=== PATIENT | male | born 1955 | race Caucasian/White ===

== ENCOUNTER 2017-10-08 19:32 | Emergency (ER) | payer OTHER ==
[~2017-10-08] VITALS: Ht 182.9 cm; Wt 115.0 kg
[2017-10-08 19:52] VITALS: BP 166/84; PULSE 70; RESP 16; TEMP 98.1; O2SAT 97
[2017-10-08] MEDS ORDERED: SODIUM CHLOR 0.9% 1000 ML INJ 1,000 ML IV SCH (22:58)
[2017-10-08] MEDS ORDERED: SODIUM CHLORIDE 0.9% FLUSH 10 ML FLUSH IVF PRN (23:00)
[2017-10-08 23:41] LABS: AUTOMATED NEUTROPHIL # 4.3 TH/MM3 (1.8-7.7); BASOPHIL # 0.1 TH/MM3 (0-0.2); BASOPHIL % 0.8 % (0.0-2.0); EOSINOPHIL # 0.2 TH/MM3 (0-0.4); EOSINOPHIL % 3.2 % (0.0-4.0); HEMATOCRIT 46.7 % (39.0-51.0); HEMO FLAGS DIFF FINAL; LYMPH % 31.5 % (9.0-44.0); LYMPHOCYTE # 2.3 TH/MM3 (1.0-4.8); MEAN CELL VOLUME 91.5 FL (80.0-100.0); MEAN CORPUSCULAR HEMOGLOBIN 29.9 PG (27.0-34.0); MEAN CORPUSCULAR HGB CONC 32.7 % (32.0-36.0); MONO % 6.8 % (0.0-8.0); NEUT % 57.7 % (16.0-70.0); PLATELET COUNT 276 TH/MM3 (150-450); WHITE BLOOD COUNT 7.4 TH/MM3 (4.0-11.0)
[2017-10-08 23:49] LABS: CHLORIDE 104 MEQ/L (98-107); POTASSIUM 3.9 MEQ/L (3.5-5.1); SODIUM (NA) 139 MEQ/L (136-145)
[2017-10-08 23:52] LABS: ANION GAP 6 MEQ/L (5-15); BICARBONATE 28.9 MEQ/L (21.0-32.0)
[2017-10-08 23:53] LABS: BLOOD UREA NITROGEN 13 MG/DL (7-18)
[2017-10-08 23:55] LABS: ALT (GPT) 62 U/L (12-78); AST (GOT) 21 U/L (15-37); GLOMERULAR FILTRATION RATE 75 ML/MIN (>89)
[2017-10-08 23:57] LABS: TOTAL BILIRUBIN ADULT 0.4 MG/DL (0.2-1.0)
[2017-10-08 23:58] LABS: ALKALINE PHOSPHATASE 80 U/L (45-117)
[2017-10-09] VITALS (8 sets, daily range): BP systolic 152–183; BP diastolic 86–112; PULSE 63–67; RESP 18–20; TEMP 97.8; O2SAT 98–99
[2017-10-09] MEDS ORDERED: IOHEXOL 350 MG/ML 10 ML VIAL (for RAD DIAG) IVCONTRAST ONE (00:18)
--- NOTE | 2017-10-09 00:32 | RADRPT ---
EXAM DATE/TIME: 10/09/2017 00:07 [place] COMPARISON: No previous studies available for comparison. INDICATIONS : Blood in stool. IV CONTRAST: 85 cc Omnipaque 350 (iohexol) IV ORAL CONTRAST: No oral contrast ingested. RADIATION DOSE: 22.30 CTDIvol (mGy) MEDICAL HISTORY : Gastroesophageal reflux disease. SURGICAL HISTORY : None. ENCOUNTER: Initial ACUITY: 1 day PAIN SCALE: 0/10 LOCATION: Abdomen. TECHNIQUE: Volumetric scanning of the abdomen and pelvis was performed. Using automated exposure control and ad justment of the mA and/or kV according to patient size, radiation dose was kept as low as reasonably achievable to obtain optimal diagnostic quality images. DICOM format image data is available electro nically for review and comparison. FINDINGS: There is a 4 mm nodule in the lingula. Followup CT scan in 6 months is recommended. No pleural effus ions are identified. There multiple enhancing lesions in the right lobe of liver likely reflecting he mangiomas the largest measuring 2 cm. MRI is recommended for further evaluation if clinically indicat ed. The spleen is normal in size and free of focal defects. The gallbladder and pancreas are unremark able. No intrahepatic or extrahepatic ductal dilatation is seen. The adrenal glands and kidneys appea r normal bilaterally. No hydronephrosis or mass lesions are identified. Examination of the pelvis demonstrates no evidence of free fluid or pelvic mass. No abnormally enlarg ed inguinal or retroperitoneal lymph nodes are present. The bladder is unremarkable. There is diverti culosis without evidence of diverticulitis. CONCLUSION: 1. No evidence of acute abdominal or pelvic process. No masses are identified. 2. Diverticulosis without evidence of diverticulitis. 3. 4 mm nodule left lung base. Followup CT scan in 6 months is recommended. Cain Ferrari MD on October 09, 2017 at 0:24 Board Certified Radiologist. This report was verified electronically.
[2017-10-09 00:52] LABS: BLOOD, URINE TRACE (NEG); GLUCOSE,URINE NEG (NEG); KETONE, URINE NEG (NEG); NITRITE,URINE NEG (NEG); PH, URINE 5.5 (5.0-8.5)
[2017-10-09 00:58] LABS: URINE COLOR YELLOW (YELLW/STRAW)
[2017-10-09 00:59] LABS: COMMENT (UR) CULT NOT INDICATED; COMMENT2 (UR) MUCOUS PRESENT; CULTURE IF INDICATED CULT NOT INDICATED; RBC, URINE 0-3 /hpf (0-3); SQUAMOUS EPITHELIAL CELL URINE 0-5 /hpf (0-5); WBC, URINE 0-2 /hpf (0-5)
--- NOTE | 2017-10-09 02:24 | PD ---
HPI Chief Complaint: GI Complaint Time Seen by Provider: 22:58 Travel History International Travel<30 days: No Contact w/Intl Traveler<30days: No Traveled to known affect area: No History of Present Illness HPI 62-year-old male presents to the emergency department for complaint of blood on tissue paper intermittently since noon. Patient states ongoing symptoms at 7 PM so follow decided to come to the emergency room for evaluation. The dizziness no lightheadedness no near syncope no syncope no sweats no shortness of breath no abdominal pain has noted some rectal discomfort. Patient denies any straining on bowel movements. No prior history of hemorrhoids. Patient has no known history of rectal bleeding colitis or diverticulitis. Patient denies any fever or chills. Patient to go to urgent care and was told to come to the emergency room for evaluation although he was not examined for any type of rectal bleeding at the clinic. [facility] Past Medical History Narrative Medical GERD; immunizations current; occasional alcohol use: Nursing notes reviewed Diminished Hearing: No GERD: Yes Immunizations Current: Yes Tetanus Vaccination: Unknown Influenza Vaccination: No Social History Alcohol Use: Yes (RARELY) Tobacco Use: No Substance Use: No Allergies-Medications (Allergen,Severity, Reaction): Coded Allergies: No Known Allergies (Unverified , 10/08/17) Reported Meds & Prescriptions Reported Meds & Active Scripts Active Clonidine (Clonidine HCl) 0.1 Mg Tab 0.1 Mg PO Q12HR PRN Analpram-Hc Rectal (Hydrocortisone-Pramoxine Rectal) 2.5-1% Lotn 1 Applic RECTAL Q6HR PRN Review of Systems Except as stated in HPI: all other systems reviewed are Neg Physical Exam Narrative GENERAL: Well-developed well-nourished male in acute distress no respiratory distress SKIN: Warm and dry. HEAD: Normocephalic. EYES: No scleral icterus. No injection or drainage. NECK: Supple, trachea midline. No JVD or lymphadenopathy. CARDIOVASCULAR: Regular rate and rhythm without murmurs, gallops, or rubs. RESPIRATORY: Breath sounds equal bilaterally. No accessory muscle use. GASTROINTESTINAL: Abdomen soft, non-tender, nondistended. Rectal exam: External exam positive hemorrhoid at the anal verge with small thrombus noted and this is gently removed with some active oozing of blood noted normal sphincter tone no palpable mass brown stool. MUSCULOSKELETAL: No cyanosis, or edema. BACK: Nontender without obvious deformity. No CVA tenderness. Data Data Last Documented VS Vital Signs Date Time Temp Pulse Resp B/P (MAP) Pulse Ox O2 Delivery O2 Flow Rate FiO2 10/09/17 03:46 63 18 169/98 (121) 99 Room Air 10/08/17 19:52 98.1 Orders Orders Complete Blood Count With Diff (10/08/17 22:58) Comprehensive Metabolic Panel (10/08/17 22:58) Lipase (10/08/17 22:58) Prothrombin Time / Inr (Pt) (10/08/17 22:58) Act Partial Throm Time (Ptt) (10/08/17 22:58) Urinalysis - C+S If Indicated (10/08/17 22:58) Type And Screen (10/08/17 22:58) Ecg Monitoring (10/08/17 22:58) Iv Access Insert/Monitor (10/08/17 22:58) Oximetry (10/08/17 22:58) Sodium Chlor 0.9% 1000 Ml Inj (Ns 1000 M (10/08/17 22:58) Sodium Chloride 0.9% Flush (Ns Flush) (10/08/17 23:00) Ct Abd/Pel W Iv Contrast(Rout) (10/09/17 ) Iohexol 350 Inj (Omnipaque 350 Inj) (10/09/17 00:18) Orthostatic Vital Signs (10/09/17 00:53) Ed Discharge Order (10/09/17 00:53) Clonidine (Catapres) (10/09/17 02:30) Labs Laboratory Tests Test 10/08/17 23:25 10/09/17 00:34 White Blood Count 7.4 TH/MM3 Red Blood Count 5.10 MIL/MM3 Hemoglobin 15.3 GM/DL Hematocrit 46.7 % Mean Corpuscular Volume 91.5 FL Mean Corpuscular Hemoglobin 29.9 PG Mean Corpuscular Hemoglobin Concent 32.7 % Red Cell Distribution Width 13.0 % Platelet Count 276 TH/MM3 Mean Platelet Volume 7.8 FL Neutrophils (%) (Auto) 57.7 % Lymphocytes (%) (Auto) 31.5 % Monocytes (%) (Auto) 6.8 % Eosinophils (%) (Auto) 3.2 % Basophils (%) (Auto) 0.8 % Neutrophils # (Auto) 4.3 TH/MM3 Lymphocytes # (Auto) 2.3 TH/MM3 Monocytes # (Auto) 0.5 TH/MM3 Eosinophils # (Auto) 0.2 TH/MM3 Basophils # (Auto) 0.1 TH/MM3 CBC Comment DIFF FINAL Differential Comment Prothrombin Time 11.0 SEC Prothromb Time International Ratio 1.0 RATIO Activated Partial Thromboplast Time 27.0 SEC Blood Urea Nitrogen 13 MG/DL Creatinine 1.00 MG/DL Random Glucose 93 MG/DL Total Protein 7.6 GM/DL Albumin 3.8 GM/DL Calcium Level 8.5 MG/DL Alkaline Phosphatase 80 U/L Aspartate Amino Transf (AST/SGOT) 21 U/L Alanine Aminotransferase (ALT/SGPT) 62 U/L Total Bilirubin 0.4 MG/DL Sodium Level 139 MEQ/L Potassium Level 3.9 MEQ/L Chloride Level 104 MEQ/L Carbon Dioxide Level 28.9 MEQ/L Anion Gap 6 MEQ/L Estimat Glomerular Filtration Rate 75 ML/MIN Lipase 172 U/L Urine Color YELLOW Urine Turbidity CLEAR Urine pH 5.5 Urine Specific [place] GREATER THAN 1.035 Urine Protein NEG mg/dL Urine Glucose (UA) NEG mg/dL Urine Ketones NEG mg/dL Urine Occult Blood TRACE Urine Nitrite NEG Urine Bilirubin NEG Urine Leukocyte Esterase NEG Urine RBC 0-3 /hpf Urine WBC 0-2 /hpf Urine Squamous Epithelial Cells 0-5 /hpf Urine Bacteria NONE /hpf Microscopic Urinalysis Comment CULT NOT INDICATED MDM Medical Decision Making Medical Screen Exam Complete: Yes Emergency Medical Condition: Yes Medical Record Reviewed: Yes Interpretation(s) CBC & BMP Diagram 10/08/17 23:25 Total Protein 7.6, Albumin 3.8, Calcium Level 8.5, Alkaline Phosphatase 80, Aspartate Amino Transf (AST/SGOT) 21, Alanine Aminotransferase (ALT/SGPT) 62, Total Bilirubin 0.4 Vital Signs Date Time Temp Pulse Resp B/P (MAP) Pulse Ox O2 Delivery O2 Flow Rate FiO2 10/09/17 02:32 180/109 (132) 10/09/17 01:30 64 20 152/98 (116) 99 Room Air 10/09/17 01:10 64 156/100 (118) 10/09/17 01:05 62 156/112 (127) 10/09/17 01:00 58 159/86 (110) 10/09/17 00:15 98 Room Air 10/08/17 22:36 18 10/08/17 19:52 98.1 70 16 166/84 (199) 97 CT abd/pel w/ contrast: FINDINGS: There is a 4 mm nodule in the lingula. Followup CT scan in 6 months is recommended. No pleural effusions are identified. There multiple enhancing lesions in the right lobe of liver likely reflecting hemangiomas the largest measuring 2 cm. MRI is recommended for further evaluation if clinically indicated. The spleen is normal in size and free of focal defects. The gallbladder and pancreas are unremarkable. No intrahepatic or extrahepatic ductal dilatation is seen. The adrenal glands and kidneys appear normal bilaterally. No hydronephrosis or mass lesions are identified. Examination of the pelvis demonstrates no evidence of free fluid or pelvic mass. No abnormally enlarged inguinal or retroperitoneal lymph nodes are present. The bladder is unremarkable. There is diverticulosis without evidence of diverticulitis. CONCLUSION: 1. No evidence of acute abdominal or pelvic process. No masses are identified. 2. Diverticulosis without evidence of diverticulitis. 3. 4 mm nodule left lung base. Followup CT scan in 6 months is recommended. Cain Ferrari MD on October 09, 2017 at 0:24 Board Certified Radiologist. This report was verified electronically. Differential Diagnosis Rectal bleeding, hemorrhoidal bleeding, anal fissure, rectal mass, diverticulitis, upper GI bleed, lower GI bleed Narrative Course patient noted to be hypertensive with no history of previous hypertension with blood noted on exam glove and with direct inspection for bleeding from hemorrhoid non-thrombosed Hemoglobin and normal range and no significant change blood pressure heart rate on orthostatic measurements Patient remains hypertensive clonidine ordered Diagnosis Primary Impression: Rectal bleeding Additional Impressions: Bleeding hemorrhoids HTN (hypertension) Referrals: Primary Care Physician 2 days Patient Instructions: General Instructions Departure Forms: Tests/Procedures, Work Release Special Instructions: no work x 3 days Additional Instructions: Recommend recheck of hemoglobin hematocrit and 6-12 hours or return before if increased rectal bleeding or any concerns Take blood pressure medication as prescribed as needed Follow-up with primary care provider regarding blood pressure and rectal bleeding Recommend clear liquid diet for next 12-24 hours advance diet as tolerated to bland/Sweta diet and then regular diet adding dietary fiber to intake and avoiding fried and fatty foods Use analpram as prescribed as needed Med/Other Pt SpecificInfo: Prescription(s) given Scripts Clonidine (Clonidine) 0.1 Mg Tab 0.1 MG PO Q12HR Y for SBP>160, DBP>90, #5 TAB 0 Refills Prov: Gavi Lopez MD 10/09/17 Hydrocortisone-Pramoxine Rectal (Analpram-Hc Rectal) 2.5-1% Lotn 1 APPLIC RECTAL Q6HR Y for ITCHING, #1 BOTTLE Prov: Gavi Lopez MD 10/09/17 Disposition: 01 DISCHARGE HOME Condition: Stable Gavi Lopez MD Oct 09, 2017 02:24
[2017-10-09] MEDS ORDERED: cloNIDine HCL 0.1 MG TAB PO ONE (02:30)
[2017-10-09] MEDS ORDERED: CLON0.1T PO (03:49)
[2017-10-09] MEDS ORDERED: HYDR1LOT9 RECTAL (03:49)
== END 2017-10-09 04:21 | disposition home or self-care (01) ==
LOC: PHED 19:32
DX: K62.5 Hemorrhage of anus and rectum (principal); K64.8 Other hemorrhoids; I10 Essential (primary) hypertension; R91.1 Solitary pulmonary nodule; Z87.19 Personal history of other diseases of the digestive system
CPT/HCPCS: 74177; 80053; 81001; 83690; 85025; 85610; 85730; 86850; 86900; 86901; 96360; 96361; 99285; J7030; Q9967

== ENCOUNTER 2017-10-09 13:36 | Emergency (ER) | payer OTHER ==
[~2017-10-09] VITALS: Ht 182.9 cm; Wt 116.0 kg
[~2017-10-09 13:36] MED LIST: CLON0.1T PO; HYDR1LOT9 RECTAL
[2017-10-09 13:48] VITALS: BP 159/101; PULSE 78; RESP 16; TEMP 98.2; O2SAT 95
--- NOTE | 2017-10-09 14:08 | PD ---
HPI Chief Complaint: repeat blood test Time Seen by Provider: 14:08 Travel History International Travel<30 days: No Contact w/Intl Traveler<30days: No Traveled to known affect area: No History of Present Illness HPI 62-year-old male came to the emergency room because he was asked to come back last night after he was seen by the night ER physician for his GI bleeding complain. Patient says that he started having rectal bleed since yesterday afternoon. He describes it as painless bleeding and only when he wipes himself down there. Had a bowel movement today and there was no blood but each time he wipes his bottom he notices some blood. No history of nausea or vomiting. No history of abdominal pain. He was evaluated and blood test done last night for this. Asked to come back to get the blood test repeated if the bleeding continued. Patient says his symptoms continue his. No history of dizziness or lightheadedness. He had a colonoscopy about 5 years ago when he was told everything was within normal limits. [facility] Past Medical History Narrative Medical List of his past medical, surgical, social and family history is reviewed from the nursing note. Diminished Hearing: No GERD: Yes Immunizations Current: Yes Social History Alcohol Use: Yes (RARELY) Tobacco Use: No Substance Use: No Allergies-Medications (Allergen,Severity, Reaction): Coded Allergies: No Known Allergies (Unverified , 10/08/17) Comments No known drug allergies. Reported Meds & Prescriptions Reported Meds & Active Scripts Active Clonidine (Clonidine HCl) 0.1 Mg Tab 0.1 Mg PO Q12HR PRN Analpram-Hc Rectal (Hydrocortisone-Pramoxine Rectal) 2.5-1% Lotn 1 Applic RECTAL Q6HR PRN Narrative Medication List of his home medications reviewed from the nursing note. Review of Systems Except as stated in HPI: all other systems reviewed are Neg Gastrointestinal: Positive: Hematochezia Physical Exam Narrative GENERAL: Awake, alert, no obvious distress SKIN: Focused skin assessment warm/dry. HEAD: Atraumatic. Normocephalic. EYES: Pupils equal and round. No scleral icterus. No injection or drainage. ENT: No nasal bleeding or discharge. Mucous membranes pink and moist. NECK: Trachea midline. No JVD. CARDIOVASCULAR: Regular rate and rhythm. No murmur appreciated. RESPIRATORY: No accessory muscle use. Clear to auscultation. Breath sounds equal bilaterally. GASTROINTESTINAL: Abdomen soft, non-tender, nondistended. Hepatic and splenic margins not palpable. MUSCULOSKELETAL: No obvious deformities. No clubbing. No cyanosis. No edema. NEUROLOGICAL: Awake and alert. No obvious cranial nerve deficits. Motor grossly within normal limits. Normal speech. PSYCHIATRIC: Appropriate mood and affect; insight and judgment normal. Data Data Last Documented VS Orders Orders Complete Blood Count With Diff (10/09/17 15:29) Ed Discharge Order (10/09/17 16:09) Labs Laboratory Tests Test 10/09/17 15:37 White Blood Count 8.5 TH/MM3 Red Blood Count 4.74 MIL/MM3 Hemoglobin 14.2 GM/DL Hematocrit 42.4 % Mean Corpuscular Volume 89.3 FL Mean Corpuscular Hemoglobin 29.9 PG Mean Corpuscular Hemoglobin Concent 33.5 % Red Cell Distribution Width 12.9 % Platelet Count 257 TH/MM3 Mean Platelet Volume 7.6 FL Neutrophils (%) (Auto) 74.9 % Lymphocytes (%) (Auto) 17.4 % Monocytes (%) (Auto) 5.2 % Eosinophils (%) (Auto) 1.7 % Basophils (%) (Auto) 0.8 % Neutrophils # (Auto) 6.4 TH/MM3 Lymphocytes # (Auto) 1.5 TH/MM3 Monocytes # (Auto) 0.4 TH/MM3 Eosinophils # (Auto) 0.1 TH/MM3 Basophils # (Auto) 0.1 TH/MM3 CBC Comment DIFF FINAL Differential Comment MDM Medical Decision Making Medical Screen Exam Complete: Yes Emergency Medical Condition: Yes Medical Record Reviewed: Yes Differential Diagnosis Internal hemorrhoids, diverticulosis, rectal bleeding Narrative Course 4:07 PM based on the Hemoccult I decided to go ahead and repeat the CBC. Patient's H&H continues to be stable. 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 I'm comfortable discharging him home. He should be seen by his GI specialist tomorrow morning. 4:30 PM I discussed the case with patient's GI specialist Dr. Mejía. He would like to see the patient in his office tomorrow known which has been relayed to the patient. Procedures EKG Prior to Arrival: No HemaPrompt Point of Care Internal Pos. & Neg. Controls: Passed Fecal Specimen Occult Blood: Positive Physician Communication Physician Communication Dr. Zimmer Diagnosis Primary Impression: Rectal bleed Referrals: Primary Care Physician Additional Instructions: Please follow-up with your GI in his office tomorrow at 12 noon in the [place] office. Return to the ER if the condition worsens or any other new concerns. Med/Other Pt SpecificInfo: No Change to Meds Disposition: 01 DISCHARGE HOME Condition: Stable Tristin Granda MD Oct 09, 2017 14:08
[2017-10-09 15:43] LABS: AUTOMATED NEUTROPHIL # 6.4 TH/MM3 (1.8-7.7); BASOPHIL # 0.1 TH/MM3 (0-0.2); BASOPHIL % 0.8 % (0.0-2.0); EOSINOPHIL # 0.1 TH/MM3 (0-0.4); EOSINOPHIL % 1.7 % (0.0-4.0); HEMATOCRIT 42.4 % (39.0-51.0); HEMO FLAGS DIFF FINAL; LYMPH % 17.4 % (9.0-44.0); LYMPHOCYTE # 1.5 TH/MM3 (1.0-4.8); MEAN CELL VOLUME 89.3 FL (80.0-100.0); MEAN CORPUSCULAR HEMOGLOBIN 29.9 PG (27.0-34.0); MEAN CORPUSCULAR HGB CONC 33.5 % (32.0-36.0); MONO % 5.2 % (0.0-8.0); NEUT % 74.9 % (16.0-70.0); PLATELET COUNT 257 TH/MM3 (150-450); RED BLOOD COUNT 4.74 MIL/MM3 (4.50-5.90); RED CELL DISTRIBUTION WIDTH 12.9 % (11.6-17.2); WHITE BLOOD COUNT 8.5 TH/MM3 (4.0-11.0)
== END 2017-10-09 17:21 | disposition home or self-care (01) ==
LOC: PHED 13:36
DX: K62.5 Hemorrhage of anus and rectum (principal)
CPT/HCPCS: 85025; 99283

== ENCOUNTER 2018-06-02 10:32 | Observation (INO) ==
[2018-06-02] MEDS ORDERED: Sod Chloride 0.9% Inj 1,000 ML IV.CONT SCH (11:15)
--- NOTE | 2018-06-02 11:36 | XR ---
EXAM DATE: 06/02/2018 11:31 AM EDT AGE/SEX: 62 years / Male INDICATIONS: Short of breath. High blood pressure. CLINICAL DATA: This is the patient's initial encounter. Patient reports that signs and symptoms have been present for 2 days and indicates a pain score of 0/10. MEDICAL/SURGICAL HISTORY: None. None. COMPARISON: POI, XR CHEST PA AND LAT, 02/25/2016. . FINDINGS: A single AP view of the chest demonstrates the lungs to be symmetrically aerated without evidence of mass, infiltrate or effusion. The cardiomediastinal contours are unremarkable and stable. There are stable calcified hilar lymph nodes. This is consistent with previous granulomatous disease.. Osseous structures are intact and stable. CONCLUSION: No acute intrathoracic disease. No significant change compared to the prior study. Electronically signed by: Jam Anderson MD 06/02/2018 11:34 AM EDT
--- NOTE | 2018-06-02 11:47 | ED ---
HPI General Chief Complaint: Neuro Symptoms/Deficit Stated Complaint: Dr Lam/Kathie TIA x Tuesday Time Seen by Provider: 06/02/18 10:54 Source: patient Mode of arrival: ambulatory Limitations: no limitations History of Present Illness HPI Narrative: Patient is a 62-year-old male with no past medical history, was sent to the emergency room by his primary care doctor, Dr. Robison for TIA workup. Patient reports that on Tuesday, he had 2 episodes of left-sided hemiparesis. Patient reports that symptoms lasted for 15 minutes and then resolve on its own. Patient reports that shortly thereafter, he had return of symptoms. Patient reports that again symptoms only lasted for a few minutes and resolve on its own. Patient follow-up with his primary care doctor today, his primary care doctor was concerned for possible TIA and requested that patient have a TIA workup. Patient was given a prescription for MRI of the head , ultrasound of the carotid arteries, cardiac ultrasound, lab work, he was told to go directly to the emergency room for workup as outpatient workup would take too long. Patient currently with no symptoms at this time. Related Data Home Medications Medication Instructions Recorded Confirmed No Known Home Medications 06/02/18 06/02/18 Allergies Allergy/AdvReac Type Severity Reaction Status Date / Time No Known Allergies Allergy Unverified 06/02/18 10:41 Review of Systems ROS Unobtainable All other systems reviewed negative except as stated in HPI [facility] Medical History Medical History H/O partial thyroidectomy (Acute) Surgical History Surgical History Hx of tonsillectomy (Acute) Social History Social History Second Hand Smoke Exposure: No Smoking Status: Never smoker How Often Do You Have a Drink Containing Alcohol: Monthly or less Recent Travel in [facility] within the Last 8 Weeks: No Recent Out of Country Travel within the Last 8 Weeks: No Immunization History Tetanus Immunization: Unsure Hx Influenza Vaccine This Season: No Exam Narrative Exam Narrative: GENERAL: NAD SKIN: Focused skin assessment warm/dry. HEAD: Atraumatic. Normocephalic. EYES: Pupils equal and round. No scleral icterus. No injection or drainage. ENT: No nasal bleeding or discharge. Mucous membranes pink and moist. NECK: Trachea midline. No JVD. CARDIOVASCULAR: Regular rate and rhythm. No murmur appreciated. RESPIRATORY: No accessory muscle use. Clear to auscultation. Breath sounds equal bilaterally. GASTROINTESTINAL: Abdomen soft, non-tender, nondistended. Hepatic and splenic margins not palpable. MUSCULOSKELETAL: No obvious deformities. No clubbing. No cyanosis. No edema. NEUROLOGICAL: Awake and alert. No obvious cranial nerve deficits. Motor grossly within normal limits. Normal speech. CN 2- 12 grossly intact with no neurovascular compromise PSYCHIATRIC: Appropriate mood and affect; insight and judgment normal. Course Initial Documented Vital Signs Temperature 98.2 F 06/02/18 10:38 Pulse Rate 68 06/02/18 10:38 Respiratory Rate 16 06/02/18 10:38 Blood Pressure 204/114 H 06/02/18 10:38 Pulse Oximetry 95 06/02/18 10:38 Last Documented Vital Signs Temperature 98.2 F 06/02/18 10:38 Pulse Rate 62 06/02/18 11:52 Respiratory Rate 18 06/02/18 11:52 Blood Pressure 145/93 H 06/02/18 11:52 Pulse Oximetry 100 06/02/18 11:52 NIH Stroke Scale NIH Stroke Scale Level of Consciousness: 0-Alert Orientation Questions: 0-Answers both correct Responds to Commands: 0-Both tasks correct Gaze Eye Movement: 0-Horizontal movement WNL Visual Meraz: 0-No visual field defect Facial Movement: 0-Normal Motor Functions Arm LEFT: 0-No drift Motor Functions Arm RIGHT: 0-No drift Motor Functions Leg LEFT: 0-No drift Motor Functions Leg RIGHT: 0-No drift Limb Ataxia: 0-No ataxia Sensory Loss: 0-No sensory loss Best Language: 0-Normal Articulation: 0-Normal Extinction or Inattention Sensory: 0-Absent Total: 0 Medical Decision Making MDM Narrative Medical decision making narrative: TIA workup was initiated in the ER CT of head was unremarkable xray of chest with no acute disease Patient will be given a dose of aspirin, he will be admitted to the hospital for further workup of his symptoms case reviewed with Dr. Haynes who accepts pt to service Differential Diagnosis Differential Diagnosis: TIA Medical Records Medical records reviewed: Yes I reviewed the patient's medical records. Lab Data Lab results reviewed: Yes I reviewed the patient's lab results. Result diagrams: 06/02/18 11:30 Lab Results 06/02/18 06/02/18 Range/Units 11:30 11:30 PT 10.1 (9.8-11.6) sec INR 1.0 Ratio APTT 25.6 (24.3-30.1) sec Sodium 142 (136-145) meq/L Potassium 3.9 (3.5-5.1) meq/L Chloride 108 H (98-107) meq/L Carbon Dioxide 26.0 (21.0-32.0) meq/L Anion Gap 8 (5-15) meq/L BUN 13 (7-18) mg/dL Creatinine 1.00 (0.60-1.30) mg/dL Estimated GFR 75 L (>89) mL/min Random Glucose 97 (74-106) mg/dL Calcium 8.5 (8.5-10.1) mg/dL Total Creatine Kinase 105 (39-308) U/L CK-MB (CK-2) 1.4 (0.5-3.6) ng/mL Troponin I Less than 0.02 L (0.02-0.05) ng/mL Imaging Data Attestation: I personally reviewed and interpreted this imaging study as follows : Radiologist's impression: ITS Impressions Chest X-Ray 06/02/18 11:14 CONCLUSION: No acute intrathoracic disease. No significant change compared to the prior study. Head CT 06/02/18 11:14 CONCLUSION: 1. Unremarkable CT brain. ECG Data EKG Prior to Arrival: No Attestation: I personally reviewed and interpreted this ECG as follows: Prior ECG tracings: not available for review Interpretation: NSR at 60bpm, qt/qtc: 405/406, no acute st or t wave changes Discharge Plan Discharge Disposition Patient Disposition: 30 Still Patient Discharge Condition Condition: Fair Physicians Team ED Provider: Violeta Dover Primary Care Provider: Bairon Robison Rxs /Orders / Referrals /Forms Prescriptions: No Action No Known Home Medications RF: 0 Status ED Status: With Doctor
[2018-06-02 11:50] LABS: Chloride 108 meq/L (98-107); Potassium 3.9 meq/L (3.5-5.1); Sodium 142 meq/L (136-145)
[2018-06-02 11:52] LABS: Calcium 8.5 mg/dL (8.5-10.1)
[2018-06-02 11:53] LABS: Anion Gap 8 meq/L (5-15); Blood Urea Nitrogen 13 mg/dL (7-18); Glucose,Random 97 mg/dL (74-106)
[2018-06-02 11:56] LABS: Glomerular Filtration Rate 75 mL/min (>89)
[2018-06-02 11:59] LABS: Creatine Kinase 105 U/L (39-308)
[2018-06-02 12:00] LABS: Activated Partial Thrombo Time 25.6 sec (24.3-30.1); Prothrombin Time 10.1 sec (9.8-11.6)
--- NOTE | 2018-06-02 12:00 | CT ---
EXAM DATE: 06/02/2018 11:53 AM EDT AGE/SEX: 62 years / Male INDICATIONS: Left sided weakness two days ago. CLINICAL DATA: This is the patient's initial encounter. Patient reports that signs and symptoms have been present for 2 days and indicates a pain score of 0/10. MEDICAL/SURGICAL HISTORY: None. Tonsillectomy. Partial thyroidectomy. RADIATION DOSE: 59.84 CTDI (mGy) COMPARISON: No prior exams available for comparison. TECHNIQUE: CT of the head without contrast. Using automated exposure control and adjustment of the mA and/or kV according to patient size, radiation dose was kept as low as reasonably achievable to ob tain optimal diagnostic quality images. DICOM format image data is available electronically for revi ew and comparison. FINDINGS: Cerebrum: The ventricles are normal for age. No evidence of midline shift, mass lesion, hemorrhage or acute infarction. No extraaxial fluid collections are seen. Posterior Fossa: The cerebellum and brainstem are intact. The 4th ventricle is midline. The cerebe llopontine angle is unremarkable. Extracranial: The visualized portion of the orbits is intact. Skull: The calvaria is intact. No evidence of skull fracture. CONCLUSION: 1. Unremarkable CT brain. Electronically signed by: Jam Anderson MD 06/02/2018 11:59 AM EDT
[2018-06-02 12:12] LABS: Creatine Kinase MB 1.4 ng/mL (0.5-3.6)
--- NOTE | 2018-06-02 12:53 | P.HPIM ---
History of Present Illness Primary Care Physician: Bairon Robison MD Chief Complaint: left sided weakness History of Present Illness: patient is a 62 y/o male with no significant past medical history who presented to ER with left sided weakness. he says that two days ago when he was shopping he suddenly developed left sided weakness. he denies any slurred speech, headache although had some dizziness at the time. this lasted for about five- ten minutes and it went away. he says that later that day when he was trying to get in the car he had another episode of left sided weakness which lasted less that five minutes.he denies any chest pain, sob, nausea. he doesn't recall any similar episodes in the past.he was seen by his PCP today who referred him to ER for further neurological work-up. - Diagnosis (1) TIA (transient ischemic attack) Inpatient Certification: I certify that the inpatient services were ordered in accordance with Medicare regulations governing the order. This includes certification that hospital inpatient services are reasonable and necessary and in the case of services not specified as inpatient-only under 42 CFR 419.22(n), that they are appropriately provided as inpatient services in accordance to with the 2-midnight benchmark under 43 CFR 412.3(e) Review of Systems All other systems reviewed negative except as stated in HPI PMFSH - History History Provided By: Patient - Medical / Surgical Hx Neg / Unobtainable Surgical History: No Previous Surgery - Medical History Medical History: Medical History (Last Reviewed 06/02/18 @ 12:05 by Violeta Dover) H/O partial thyroidectomy - Surgical History Surgical History: Surgical History (Last Reviewed 06/02/18 @ 12:05 by Violeta Dover) Hx of tonsillectomy - Tobacco History Second Hand Smoke Exposure: No Tobacco Use In Past 30 Days: No Smoking Status: Never smoker - Alcohol History How Often Do You Have a Drink Containing Alcohol: Monthly or less - Travel History Recent Travel in the [place] Within the Last 8 Weeks: No Recent Travel Out of the Country Within the Last 8 Weeks: No - Immunization History Tetanus Immunization: Unsure Hx Influenza Vaccine This Season: No Medications and Allergies Active Medications: Active Medications Aspirin (Ecotrin) 81 mg PO DAILY THAIS Sodium Chloride (Ns Inj) 1,000 mls @ 70 mls/hr IV.CONT .[id number] THAIS Stop: 06/03/18 01:32 Last Admin: 06/02/18 11:36 Dose: 70 mls/hr Sodium Chloride (Ns Flush) 2 ml IV.FLUSH PRN PRN PRN Reason: FLUSH AFTER USING IV ACCESS Allergies Allergy/AdvReac Type Severity Reaction Status Date / Time No Known Allergies Allergy Unverified 06/02/18 10:41 Home Medications Medication Instructions Recorded Confirmed Type No Known Home Medications 06/02/18 06/02/18 History Exam Vital signs: Vital Signs 06/02/18 10:38 06/02/18 11:52 Temperature 98.2 F Pulse Rate 68 62 Respiratory Rate 16 18 Blood Pressure 204/114 H 145/93 H Pulse Oximetry 95 100 Intake & Output 06/01/18 06/02/18 06/02/18 18:59 06:59 18:59 Weight 116 kg - Constitutional no acute distress - Routine HEENT Exam Head: Present: atraumatic - Routine Neck Exam Present: supple, full ROM - Routine Respiratory Exam Present: CTA bilaterally - Routine Cardiovascular Exam Present: RRR - Routine Abdominal Exam Present: soft - Routine Extremities Exam Comments: no pedal edema. - Routine Neurological Exam Present: alert, oriented X3, moving all extremities, normal speech Results - Labs CBC & Chem 7: 06/02/18 11:30 Labs: BMP 06/02/18 11:30 Sodium 142 Potassium 3.9 Chloride 108 H Carbon Dioxide 26.0 BUN 13 Creatinine 1.00 Calcium 8.5 Cardiac Enzymes 06/02/18 Range/Units 11:30 Total Creatine Kinase 105 (39-308) U/L CK-MB (CK-2) 1.4 (0.5-3.6) ng/mL Troponin I Less than 0.02 L (0.02-0.05) ng/mL - Imaging Impressions Chest X-Ray 06/02/18 11:14 CONCLUSION: No acute intrathoracic disease. No significant change compared to the prior study. Head CT 06/02/18 11:14 CONCLUSION: 1. Unremarkable CT brain. Caprini VTE Risk Assessment Caprini VTE Risk Assessment: No/Low Risk (score <= 1) Caprini Risk Assessment Model: Point Value = 1 Point Value = 2 Point Value = 3 Point Value = 5 Age 41-60 Minor surgery BMI > 25 kg/m2 Swollen legs Varicose veins or History of unexplained or recurrent spontaneous Oral contraceptives or hormone replacement Sepsis (< 1 month) Serious lung disease, including pneumonia (< 1 month) Abnormal pulmonary function Acute myocardial infarction Congestive heart failure (< 1 month) History of inflammatory bowel disease Medical patient at bed rest Age 61-74 Arthroscopic surgery Major open surgery (> 45 min) Laparoscopic surgery (> 45 min) Malignancy Confined to bed (> 72 hours) Immobilizing plaster cast Central venous access Age >= 75 History of VTE Family history of VTE Factor V Leiden Prothrombin [id number] Lupus anticoagulant Anticardiolipin antibodies Elevated serum homocysteine Heparin-induced thrombocytopenia Other congenital or acquired thrombophilia Stroke (< 1 month) Elective arthroplasty Hip, pelvis, or leg fracture Acute spinal cord injury (< 1 month) Prophylaxis Regimen: Total Risk Factor Score Risk Level Prophylaxis Regimen 0-1 Low Early ambulation 2 Moderate Order ONE of the following: *Sequential Compression Device (SCD) *Heparin 5000 units SQ BID 3-4 Higher Order ONE of the following medications: *Heparin 5000 units SQ TID *Enoxaparin/Lovenox 40 mg SQ daily (WT < 150 kg, CrCl > 30 mL/min) *Enoxaparin/Lovenox 30 mg SQ daily (WT < 150 kg, CrCl > 10-29 mL/min) *Enoxaparin/Lovenox 30 mg SQ BID (WT < 150 kg, CrCl > 30 mL/min) AND/OR *Sequential Compression Device (SCD) 5 or more Highest Order ONE of the following medications: *Heparin 5000 units SQ TID (Preferred with Epidurals) *Enoxaparin/Lovenox 40 mg SQ daily (WT < 150 kg, CrCl > 30 mL/min) *Enoxaparin/Lovenox 30 mg SQ daily (WT < 150 kg, CrCl > 10-29 mL/min) *Enoxaparin/Lovenox 30 mg SQ BID (WT < 150 kg, CrCl > 30 mL/min) AND *Sequential Compression Device (SCD) Assessment and Plan - Assessment (1) TIA (transient ischemic attack) Code(s): G45.9 - Transient cerebral ischemic attack, unspecified Status: Acute Plan: continue to monitor on telemetry. continue with aspirin- will check MRI/MRA brain- echo and carotid doppler- consult neurology. - Plan Discussed Condition With: ER physician and the patient. Discharge Planning: pending the work-up and clinical course.
[2018-06-02 13:13] LABS: Hematocrit 42.7 % (39.0-51.0); Hemoglobin 14.3 gm/dL (13.0-17.0); Mean Corpuscular HGB Conc 33.5 % (32.0-36.0); Mean Corpuscular Hemoglobin 30.2 pg (27.0-34.0); Mean Corpuscular Volume 90.1 fL (80.0-100.0); Mean Platelet Volume 8.7 fL (7.0-11.0); Platelet Count 279 th/mm3 (150-450); Red Blood Count 4.74 mil/mm3 (4.50-5.90); Red Cell Distribution Width 13.4 % (11.6-17.2); White Blood Count 5.3 th/mm3 (4.0-11.0)
[2018-06-02] MEDS: Sod Chloride 0.9% Inj 1,000 ML IV.CONT SCH ×2 (15:48→22:49)
--- NOTE | 2018-06-02 15:48 | MR ---
EXAM DATE: 06/02/2018 3:26 PM EDT AGE/SEX: 62 years / Male INDICATIONS: CVA. CLINICAL DATA: This is the patient's initial encounter. Patient reports that signs and symptoms have been present for 3 days and indicates a pain score of 2/10. MEDICAL/SURGICAL HISTORY: Renal calculi. Basel cell cancer. Tonsillectomy. Thyroidectomy. COMPARISON: [facility], CT HEAD W/O CONTRAST, 06/02/2018. . TECHNIQUE: Multiplanar, multisequence examination of the brain was performed without contrast. FINDINGS: Cerebrum: The ventricles are normal for age. No evidence of midline shift, mass lesion, hemorrhage or acute infarction. No extraaxial fluid collections are seen. The pituitary gland and suprasellar cistern are normal in configuration. White Matter: Chronic white matter changes are noted bilaterally. This is characteristic for patient 's age. Posterior Fossa: The cerebellum and brainstem are intact. The 4th ventricle is midline. The cerebel lopontine angle is unremarkable. The cerebellar tonsils are normal in position. Diffusion Imaging: No focal areas of restricted diffusion are seen. No evidence of acute infarction . Extracranial: The visualized portions of the orbits and paranasal sinuses are unremarkable. CONCLUSION: 1. No acute intracranial pathology. Electronically signed by: Jam Anderson MD 06/02/2018 3:47 PM EDT
--- NOTE | 2018-06-02 15:49 | MR ---
EXAM DATE: 06/02/2018 3:26 PM EDT AGE/SEX: 62 years / Male INDICATIONS: TIA. CLINICAL DATA: This is the patient's initial encounter. Patient reports that signs and symptoms have been present for 3 days and indicates a pain score of 2/10. MEDICAL/SURGICAL HISTORY: Renal calculi. Basal cell cancer. Tonsillectomy. Thyroidectomy. COMPARISON: [facility], MR HEAD W/O CONTRAST, 06/02/2018. . TECHNIQUE: 3D [id number] MRA was performed. Source images, multiplanar STS MIP, and 3D volum e MIP reconstructions were reviewed. FINDINGS: There is excellent visualization of the major intracranial arteries out to the second-order branch ve ssels. There is no evidence for aneurysm, vessel truncation or stenosis, and no evidence for vascula r malformation. CONCLUSION: 1. Unremarkable MRA of the brain. Electronically signed by: Jam Anderson MD 06/02/2018 3:48 PM EDT
[2018-06-02 15:58] LABS: Bilirubin,Urine Negative (Negative); Clarity,Urine Clear (Clear); Color,Urine Yellow (Yellw/Straw); Glucose,Urine (UA) Negative (Negative); Leukocyte Esterase,Urine Negative (Negative); Nitrite,Urine Negative (Negative); PH,Urine 5.5 (5.0-8.5); Specific Gravity,Urine Greater/Equal 1.030 (1.002-1.035); Urobilinogen,Urine 0.2 mg/dL (Less than 2)
[2018-06-02 16:06] LABS: RBC,Urine 0-3 /hpf (0-3); Squamous Epithelial Cell,Urine 0-5 /hpf (0-5)
--- NOTE | 2018-06-02 18:50 | US ---
EXAM DATE: 06/02/2018 6:20 PM EDT AGE/SEX: 62 years / Male INDICATIONS: 2 episodes of left-sided hemiparesis. CLINICAL DATA: This is the patient's initial encounter. Patient reports that signs and symptoms have been present for 3 days and indicates a pain score of 0/10. MEDICAL/SURGICAL HISTORY: . Unobtainable at this time. Tonsillectomy. Partial thyroidectomy. COMPARISON: No prior exams available for comparison. VELOCITY PARAMETERS: ICA/CCA Ratio: Right 1.2 , Left 0.9 ICA: Right 87 cm/sec, Left 86 cm/sec CCA: Right 74 cm/sec, Left 97 cm/sec ECA: Right 110 cm/sec, Left 107 cm/sec Vertebral: Right 52 cm/sec antegrade, Left 65 cm/sec antegrade FINDINGS: Right Carotid: No significant plaque is visualized.The waveforms are within normal limits. Left Carotid: No significant plaque is visualized. The waveforms are within normal limits. Other: None. CONCLUSION: 1. Right Internal Carotid Artery: No hemodynamically significant stenosis. 2. Left Internal Carotid Artery: No hemodynamically significant stenosis. Electronically signed by: Tremaine Leiva MD 06/02/2018 6:48 PM EDT
--- NOTE | 2018-06-02 19:11 | MB ---
cc: Rich Ramos MD, PhD DATE: 06/02/2018 REASON FOR CONSULTATION: TIA. HISTORY OF PRESENT ILLNESS: Mr. De is a very pleasant 62-year-old man previously healthy until Tuesday when he was in [facility], suddenly became weak and numb in the left arm and left leg. This lasted about 30 minutes and cleared up. He had another episode the same day, lasting a little bit shorter, then cleared up. He had no recurrent episodes. Denied any headache or speech changes. PAST MEDICAL HISTORY: Unremarkable. MEDICATIONS AT HOME: None. NEUROLOGICAL EXAMINATION: VITAL SIGNS: His blood pressure is 145/93, pulse is 62, respiratory rate is 18, temperature 97.8 degrees. HIGHER CORTICAL FUNCTIONS: Normal, including speech. CRANIAL NERVES: 2-12 are normal. MOTOR: He has got normal strength and tone of all groups in both upper and lower extremities. He states his sensation is normal. RADIOGRAPH STUDIES: MRI of the brain is within normal limits. CT head unremarkable. MRA of the brain is within normal limits. Carotid ultrasound is within normal limits with no evidence of any significant stenosis. Echocardiogram is pending. LABORATORY DATA: The white count 5300; hemoglobin 14.3; hematocrit 42.7%; platelet count 279,000. PT 10.1, INR 1, aPTT 25.6. Sodium is 142, potassium 3.9, chloride 108, CO2 of 26, BUN is 13, creatinine 1, GFR 75, glucose 97, calcium 8.5. IMPRESSION: Transient ischemic attack, now resolved. RECOMMENDATIONS: Aspirin 325 mg daily. We will check a lipid panel, echocardiogram. Continue to monitor cardiac telemetry to rule out fibrillation. If echocardiogram is normal and he is stable, could be discharged tomorrow from the neurological standpoint on aspirin. Consider a cardiology evaluation as an outpatient to consider a long-term loop environmental monitoring technician to rule out fibrillation. Rich Ramos MD, PhD JONEL/CASS , 06:58 PM , 07:09 PM
--- NOTE | 2018-06-03 08:49 | P.PN ---
Subjective Interval history: in no acute distress. no focal weakness or any other complaints. Physical Exam Vital signs: Vital Signs 06/02/18 10:38 06/02/18 11:52 06/02/18 13:31 Temperature 98.2 F Pulse Rate 68 62 81 Respiratory Rate 16 18 16 Blood Pressure 204/114 H 145/93 H 146/89 H Pulse Oximetry 95 100 97 06/02/18 13:50 06/02/18 16:00 06/02/18 18:07 Temperature 97.8 F Pulse Rate 56 L 54 L Respiratory Rate Blood Pressure 152/88 H Pulse Oximetry 96 97 06/02/18 20:00 06/02/18 20:32 06/02/18 20:48 Temperature 96.1 F L Pulse Rate 54 L 57 L Respiratory Rate 18 Blood Pressure 162/108 H Pulse Oximetry 97 97 06/03/18 00:00 06/03/18 04:00 06/03/18 08:05 Temperature 96.2 F L 96.4 F L 97.1 F L Pulse Rate 53 L 53 L 59 L Respiratory Rate 17 16 20 Blood Pressure 154/84 H 151/84 H 175/90 H Pulse Oximetry 97 97 96 Intake & Output 06/02/18 06/03/18 06/03/18 18:59 06:59 18:59 Intake Total 560 / 560 240 / 240 Output Total 2 / 2 Balance 560 / 560 238 / 238 Weight 117.8 kg Intake: IV 100 / 100 NS Inj 1,000 ML @ 70 mls/hr IV. 100 / 100 CONT .[id number] [facility] Rx#: [id number] Oral 360 / 360 240 / 240 Oral Supplement 100 / 100 Output: Urine 2 / 2 Other: # Voids 3 2 Date of Last Bowel Movement 06/02/18 # Bowel Movements 0 Weight On Admission 117.8 kg - Constitutional no acute distress - Routine Neck Exam Present: supple, full ROM - Routine Respiratory Exam Present: CTA bilaterally - Routine Cardiovascular Exam Present: RRR - Routine Abdominal Exam Present: soft - Routine Extremities Exam Comments: no pedal edema. - Routine Neurological Exam Present: alert, oriented X3 Results - Labs CBC & Chem 7: 06/02/18 11:30 06/02/18 11:30 Laboratory Results - last 24 hr 06/02/18 06/02/18 06/02/18 11:30 11:30 11:30 WBC 5.3 RBC 4.74 Hgb 14.3 Hct 42.7 MCV 90.1 MCH 30.2 MCHC 33.5 RDW 13.4 Plt Count 279 MPV 8.7 PT 10.1 INR 1.0 APTT 25.6 Sodium 142 Potassium 3.9 Chloride 108 H Carbon Dioxide 26.0 Anion Gap 8 BUN 13 Creatinine 1.00 Estimated GFR 75 L Random Glucose 97 Calcium 8.5 Total Creatine Kinase 105 CK-MB (CK-2) 1.4 Troponin I Less than 0.02 L Urine Color Urine Clarity Urine pH Ur Specific [place] Urine Protein Urine Glucose (UA) Urine Ketones Urine Occult Blood Urine Nitrate Urine Bilirubin Urine Urobilinogen Ur Leukocyte Esterase Urine RBC Urine WBC Ur Squamous Epith Cells Micro UA Comment Urine Culture Comments 06/02/18 15:06 WBC RBC Hgb Hct MCV MCH MCHC RDW Plt Count MPV PT INR APTT Sodium Potassium Chloride Carbon Dioxide Anion Gap BUN Creatinine Estimated GFR Random Glucose Calcium Total Creatine Kinase CK-MB (CK-2) Troponin I Urine Color Yellow Urine Clarity Clear Urine pH 5.5 Ur Specific [place] Greater/equal 1.030 Urine Protein Negative Urine Glucose (UA) Negative Urine Ketones Negative Urine Occult Blood Trace Urine Nitrate Negative Urine Bilirubin Negative Urine Urobilinogen 0.2 Ur Leukocyte Esterase Negative Urine RBC 0-3 Urine WBC 5-8 H Ur Squamous Epith Cells 0-5 Micro UA Comment Culture not ind Urine Culture Comments Culture not ind - Imaging Impressions Carotid Doppler Study 06/02/18 00:00 CONCLUSION: 1. Right Internal Carotid Artery: No hemodynamically significant stenosis. 2. Left Internal Carotid Artery: No hemodynamically significant stenosis. Head MRI 06/02/18 00:00 CONCLUSION: 1. No acute intracranial pathology. Head MRA 06/02/18 00:00 CONCLUSION: 1. Unremarkable MRA of the brain. Chest X-Ray 06/02/18 11:14 CONCLUSION: No acute intrathoracic disease. No significant change compared to the prior study. Head CT 06/02/18 11:14 CONCLUSION: 1. Unremarkable CT brain. Assessment and Plan - Assessment (1) TIA (transient ischemic attack) Code(s): G45.9 - Transient cerebral ischemic attack, unspecified Status: Acute Plan: sinus rhythm on telemetry. continue with aspirin- work-up so far including MRI/ MRA brain and carotid doppler negative- echo pending- neurology consult appreciated.might consider cardiology evaluation as outpatient for possible loop recorder. (2) Hypertension Code(s): I10 - Essential (primary) hypertension Status: Acute Plan: BP still elevated- will start on amlodipine- f/u as outpatient. - Plan Discharge Planning: dc home today- after echo is resulted. f/ul; pcp, neurology and cardiology. see med list. d/w the patient. (2) Hypertension Qualifiers: Hypertension type: essential hypertension Qualified Code(s): I10 - Essential (primary) hypertension
[2018-06-03] MEDS ORDERED: amLODIPine 5 MG Tablet PO SCH (09:00)
[2018-06-03] MEDS: Sod Chloride 0.9% Inj 1,000 ML IV.CONT SCH (09:06)
--- NOTE | 2018-06-03 10:46 | ECG ---
Date Performed: 06/02/2018 Time Performed: 11:21:32 PTAGE: 62 years EKG: Sinus rhythm NORMAL ECG NO PREVIOUS TRACING DOCTOR: Helder Blanc Interpretating Date/Time 06/03/2018 10:45:42
[2018-06-03 14:04] LABS: Chol/HDL Ratio 4.61 Ratio; HDL Cholesterol 37.9 mg/dL (40.0-60.0)
--- NOTE | 2018-06-03 15:11 | P.PNADD ---
Addendum to Inpatient Note Reason for Addendum: Additional Documentation (echo is pending and the patient wants to go home and doesn't wait to wait for the result of the echo. he will be discharged home with f/u with his PCP. echo will be followed up as outpatient.)
--- NOTE | 2018-06-03 19:15 | P.PNNEU ---
Subjective Subjective Comments: No acute events reported No recurrent episodes of focal weakness or numbness Active Medications: Active Medications Generic Name Dose Route Start Last Admin Trade Name Freq PRN Reason Stop Dose Admin Amlodipine Besylate 5 mg 06/03/18 09:00 06/03/18 09:11 Norvasc PO 5 mg DAILY THAIS Administration Aspirin 325 mg 06/03/18 09:00 06/03/18 09:08 Ecotrin PO 325 mg DAILY THAIS Administration Sodium Chloride 1,000 mls @ 100 mls/hr 06/02/18 13:00 06/03/18 09:06 Ns Inj IV.CONT 100 mls/hr .Q10H THAIS Administration Sodium Chloride 2 ml 06/02/18 11:14 Ns Flush IV.FLUSH PRN PRN FLUSH AFTER USING IV ACCESS Allergies/Adverse Reactions: Allergies Allergy/AdvReac Type Severity Reaction Status Date / Time No Known Allergies Allergy Unverified 06/02/18 10:41 Physical Exam Vital signs: Vital Signs 06/02/18 20:00 06/02/18 20:32 06/02/18 20:48 Temperature 96.1 F L Pulse Rate 54 L 57 L Respiratory Rate 18 Blood Pressure 162/108 H Pulse Oximetry 97 97 06/03/18 00:00 06/03/18 04:00 06/03/18 08:05 Temperature 96.2 F L 96.4 F L 97.1 F L Pulse Rate 53 L 53 L 59 L Respiratory Rate 17 16 20 Blood Pressure 154/84 H 151/84 H 175/90 H Pulse Oximetry 97 97 96 06/03/18 09:46 06/03/18 11:46 06/03/18 15:39 Temperature 97.4 F L 96.2 F L Pulse Rate 52 L 52 L Respiratory Rate 20 20 Blood Pressure 155/84 H 148/84 H Pulse Oximetry 98 96 95 Intake & Output 06/03/18 06/03/18 06/04/18 06:59 18:59 06:59 Intake Total 240 / 240 1840 / 1840 Output Total 2 / 2 Balance 238 / 238 1840 / 1840 Intake: IV 1000 / 1000 NS Inj 1,000 ML @ 100 mls/hr IV 1000 / 1000 .CONT .Q10H THAIS Rx#:[id number] Oral 240 / 240 840 / 840 Output: Urine 2 / 2 Other: # Voids 2 4 Date of Last Bowel Movement 06/02/18 # Bowel Movements 0 - Routine Neurological Exam alert, speech normal CN intact MOTOR 5/5 BUE Objective Laboratory Results - last 24 hr 06/03/18 06/03/18 06/03/18 06:33 06:33 06:33 AST 19 Cancelled ALT 48 Cancelled Triglycerides 135 Cholesterol 175 LDL Cholesterol, Calc 110 H HDL Cholesterol 37.9 L Cholesterol/HDL Ratio 4.61 Review/Management - Diagnosis (1) TIA (transient ischemic attack) Code(s): G45.9 - Transient cerebral ischemic attack, unspecified Status: Acute Current Visit: Yes - Review/Management Plan: If echocardiogram normal, ok to dc home on asa, statin recommend outpatient cardiology referral for senior care top taper machine/ loop recorder to r/o intermittent atrial fibrillation.
--- NOTE | 2018-06-03 19:46 | ECHRPT ---
Indication: CVA/TIA CONCLUSIONS The left ventricular systolic function is normal with an estimated ejection fraction in the range of 55-60%. Normal left ventricular size. Wall thickness is measured at the upper limits of normal. Trileaflet aortic valve. Trivial aortic sclerosis. Trace aortic valve regurgitation. There is trace tricuspid valve regurgitation. BP: / HR: Rhythm: Sinus MEASUREMENTS (Male / Female) Normal Values Technical Quality:Fair 2D ECHO LV Diastolic Diameter PLAX 4.2 cm 4.2 - 5.9 / 3.9 - 5.3 cm LV Systolic Diameter PLAX 3.1 cm IVS Diastolic Thickness 1.1 cm 0.6 - 1.0 / 0.6 - 0.9 cm LVPW Diastolic Thickness 1.1 cm 0.6 - 1.0 / 0.6 - 0.9 cm LV Relative Wall Thickness 0.5 RV Internal Dim ED PLAX 3.1 cm LVOT Diameter 2.1 cm LA Systolic Diameter LX 4.6 cm 3.0 - 4.0 / 2.7 - 3.8 cm M-MODE Aortic Root Diameter MM 4.0 cm LA Systolic Diameter MM 3.6 cm LA Ao Ratio MM 0.9 AV Cusp Separation MM 2.2 cm DOPPLER AV Peak Velocity 141.0 cm/s AV Peak Gradient 8.0 mmHg LVOT Peak Velocity 111.0 cm/s LVOT Peak Gradient 4.9 mmHg AV Area Cont Eq pk 2.7 cm MV Area PHT 3.5 cm Mitral E Point Velocity 85.9 cm/s Mitral A Point Velocity 53.8 cm/s Mitral E to A Ratio 1.6 LV E' Lateral Velocity 9.4 cm/s Mitral E to LV E' Lateral Ratio 9.2 LV E' Septal Velocity 7.9 cm/s Mitral E to LV E' Septal Ratio 10.9 FINDINGS LEFT VENTRICLE The left ventricular systolic function is normal with an estimated ejection fraction in the range of 55-60%. Normal left ventricular size. Wall thickness is measured at the upper limits of normal. RIGHT VENTRICLE Normal right ventricular size and systolic function. LEFT ATRIUM The left atrial size is moderately dilated. RIGHT ATRIUM The right atrial size is normal. ATRIAL SEPTUM Normal atrial septal thickness without atrial level shunting by limited color doppler interrogation. AORTA The aortic root and proximal ascending aorta are normal in size on limited imaging. MITRAL VALVE Structurally normal mitral valve. No mitral valve stenosis or regurgitation. AORTIC VALVE Trileaflet aortic valve. Trivial aortic sclerosis. Trace aortic valve regurgitation. TRICUSPID VALVE The tricuspid valve is not well visualized. There is trace tricuspid valve regurgitation. PULMONARY VALVE Trivial pulmonary valve regurgitation. VESSELS The inferior vena cava is normal in size. PERICARDIUM No pericardial effusion. Helder Blanc MD (Electronically Signed) Final Date:03 June 2018 19:45
== END 2018-06-03 20:09 | disposition home or self-care (01) ==
LOC: PHEDA 10:32 → PH3 10:32 → PHED 10:32 → PHEDA 13:32 → PH3 13:34
PROVIDERS: ADMIT Internal Medicine; ATTEND Internal Medicine